=== PATIENT | female | born 1955 | race Caucasian/White ===

== ENCOUNTER 2024-02-15 07:37 | Day surgery (SDC) | payer OTHER ==
[2024-02-15] MEDS ORDERED: Lactated Ringers 1,000 ML IV ONE (07:55)
[2024-02-15] MEDS ORDERED: TYLENOL EXTRA STRENGTH 500 MG ONE (07:55)
[2024-02-15] MEDS ORDERED: Decadron 4 MG ONE (07:55)
[2024-02-15] MEDS ORDERED: celeBREX 100 MG ONE (07:55)
[2024-02-15] MEDS ORDERED: NEURONTIN ONE (07:55)
[2024-02-15] MEDS ORDERED: Decadron 4 MG PO ONE (07:59)
[2024-02-15] MEDS: TYLENOL EXTRA STRENGTH 500 MG PO ONE (08:05)
[2024-02-15] MEDS: Decadron 4 MG PO ONE (08:05)
[2024-02-15] MEDS: NEURONTIN PO ONE (08:06)
[2024-02-15] MEDS: celeBREX 100 MG PO ONE (08:06)
[2024-02-15] MEDS: Lactated Ringers 1,000 ML IV SCH (08:10)
[2024-02-15] MEDS: CEFAZOLIN 2 GM/100 ML NaCl 2 GM/100 ML IVPB IV SCH (08:10)
[2024-02-15] MEDS ORDERED: Zofran 4 MG/2 ML VIAL ONE ×2 (08:17→13:39)
[2024-02-15] MEDS: Zofran 4 MG/2 ML VIAL IV STA (08:19)
[2024-02-15] MEDS ORDERED: Epinephrine Preservative Free 1 MG/ML ONE ×4 (09:03→15:00)
[2024-02-15] MEDS ORDERED: Versed 2 MG/2 ML Injection ONE (11:05)
[2024-02-15] MEDS ORDERED: SUBLIMAZE 100 MCG/2 ML ONE ×2 (11:05→14:30)
[2024-02-15] MEDS ORDERED: ROCURONIUM BROMIDE IV ONE (11:06)
[2024-02-15] MEDS ORDERED: XYLOCAINE 2%/Epi 1:200000 20ML VIAL MPF ONE (11:06)
[2024-02-15] MEDS ORDERED: DIPRIVAN 200 MG/20 ML IV ONE (11:06)
[2024-02-15] MEDS ORDERED: EXPAREL 133 MG/10 ML VIAL IJ ONE (11:07)
[2024-02-15] MEDS ORDERED: Marcaine Mpf 0.5% Vial 30 Ml ONE (11:07)
[2024-02-15] MEDS ORDERED: Xylocaine-Mpf 2% 5 Ml Vial ONE ×2 (11:09→12:22)
[2024-02-15] MEDS ORDERED: PHENYLEPHRINE HCL ONE (12:57)
[2024-02-15] MEDS ORDERED: Lactated Ringers IV ONE (13:26)
[2024-02-15] MEDS ORDERED: Lactated Ringers 5,000 ML IV ONE (13:26)
[2024-02-15] MEDS ORDERED: BRIDION 200MG/2ML IV ONE (13:39)
[2024-02-15] MEDS ORDERED: TORAdol 30 mg Injection ONE (13:39)
[2024-02-15 15:05] VITALS: RESP 16; TEMP 97.5; O2SAT 94
[2024-02-15 15:16] VITALS: BP 166/85; PULSE 60
--- NOTE | 2024-02-17 19:34 | OP ---
SURGERY DATE/TIME: 02/15/2024 [id number] - [id number] PREOPERATIVE DIAGNOSIS: Torn left rotator cuff with impingement syndrome and acromioclavicular osteoarthritis. POSTOPERATIVE DIAGNOSIS: Torn left rotator cuff with impingement syndrome and acromioclavicular osteoarthritis. PROCEDURE: Arthroscopy of the left shoulder with rotator cuff repair utilizing a 4.5 SwiveLock anchor with FiberTape and a rip-stop stitch FiberWire, subacromial decompression and Abdelrahman procedure. SURGEON: Norman Beltran II, DO ANESTHESIA: General with a block for postoperative pain control. DESCRIPTION OF PROCEDURE AND FINDINGS: The patient was identified and informed consent was obtained. The patient was taken to the preoperative holding area where the scalene block was administered by Anesthesia. Patient was then taken to the operative suite and placed in supine position on the operating table and the general anesthetic was administered. Once an appropriate level of anesthesia had been obtained, the patient was then placed into the right lateral decubitus position with the left side up, shoulders rotated back 20 degrees, axillary roll placed and bony prominences padded. At this point, the stratton bag was inflated and the left upper extremity was then prepped and draped in the usual sterile fashion. A standard time out was taken. The arm was then placed into the abduction traction device with 40 degrees of lateral opening, 20 degrees of forward flexion and about 10 pounds of longitudinal traction. At this point, the shoulder was marked for bony landmarks and a standard posterior portal was created. Trocar and cannula were then placed into the glenohumeral joint through the posterior portal. An 18-gauge spinal needle identified the level for the anterior portal and this was also created with an 11 blade. Glenohumeral joint was inspected in a systematic fashion. The labrum was noted to be intact. The glenoid fossa had no degenerative changes. The humeral head was intact. The patient did have a little mild scuffing along the biceps, but there was no evidence of a split tear and no evidence of significant tendinopathy. At this point, the scope was placed inferiorly and the inferior pouch was inspected, no loose bodies or synovial hypertrophy. The glenohumeral ligaments were noted to be intact. Upon probing of the rotator cuff, there was noted to be a small full-thickness tear involving the supraspinatus tendon. At this point, the tear was repaired on the articular side and then at this point the scope was removed and bursoscopy was performed. The scope was then placed into the bursal space. A portion of the bursa was excised for visualization. The undersurface of the acromion was denuded of soft tissue and about 2-bur thicknesses of acromion was removed anteriorly tapering this to a good smooth transition posteriorly. The patient did have a large trumpeting on the distal clavicle and about 2.5-bur thicknesses of distal clavicle was resected with attention to removing the large inferior trumpeting type spur. At this point then, our attention was turned to the rotator cuff. The bony bed was repaired. The rotator cuff edges were freshened, and utilizing a FiberTape with an inverted mattress type stitch and a rip-stop stitch with a FiberWire the rotator cuff was repaired back to its footprint with a 4.5 SwiveLock anchor. The shoulder was reinspected and no further pathology identified. The instrumentation was removed and the portal sites were closed with interrupted 4-0 nylon suture. Adaptics, 4 x 4's and a sterile dressing applied. The patient was transferred to the cart and taken to recovery room in satisfactory condition having tolerated the procedure well.
== END 2024-02-15 15:40 | disposition home or self-care (01) ==
LOC: SDC 07:37
PROVIDERS: ATTEND Orthopaedic Surgery
DX: M75.122 Complete rotator cuff tear or rupture of left shoulder, not specified as traumatic (principal); M75.42 Impingement syndrome of left shoulder; M19.012 Primary osteoarthritis, left shoulder
CPT/HCPCS: 29826; 29827; C1713; J0171; J0690; J1885; J2250; J2371; J2405; J2704; J3010; A9270-GY